=== PATIENT | male | born 1940 | race Caucasian/White ===

== ENCOUNTER 2016-10-01 21:44 | Observation (INO) | payer MEDICARE, OTHER ==
[~2016-10-01] VITALS: Ht 175.3 cm; Wt 92.7 kg
[~2016-10-01 21:44] MED LIST: AMOX1TAB15 PO; BENZ200C36 PO; CALC-727 PO; CODE118S2 PO; HYDR-3989 PO; IBUP200C62 PO; MULT-669 PO; OMEP20TA2 PO; SILD100T PO; TAMS0.4C47 PO; TEST200V21 IM; TRIA1TAB3 PO
--- OUTSIDE RECORDS SUMMARY | 2016-10-01 21:48 | XMS REPORT | Continuity of Care Document ---
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, 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 - Improved Mechanical ptosis - Improved Family History Family Member Diagnosis Age At Onset Status Unknown Social History Social History Element Description Quantity Unknown Allergies, Adverse Reactions, Alerts Substance Reaction Severity Status Unknown Medications Medication Instructions Dosage Effective Dates (start - stop) Status FLOMAX (unknown strength) - Active Testosterone (unknown strength) - Active VIAGRA (unknown strength) - Active LIDODERM (unknown strength) - Active ASPIR 81 (unknown strength) - Active Fish Oil (unknown strength) - Active Immunizations Vaccine Date Status Comments Unknown Results Test Name Date and Time Measure Units Reference Range Abnormal Flag Comments Unknown Vital Signs Date / Time: Height Weight Pulse Rate Blood Pressure Temperature Unknown Procedures Procedure Date Unknown Encounters Encounter Location Date Patient Visit [facility] Ophthamology Patient Visit [facility] Ophthamology Patient Visit [facility] Ophthamology Patient Visit [facility] Ophthamology Advance Directives Directive Effective Date Unknown
--- OUTSIDE RECORDS SUMMARY | 2016-10-01 21:48 | XMS REPORT | Referral Summary ---
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 Phone Karon Diallo Primary Care Physician [phone] Encounter VC Date(s): 03/22/15 - 03/23/15 [facility] [address] [place] [address] Final: UNSPECIFIED CHEST PAIN Final: UNSPECIFIED ESSENTIAL HYPERTENSION Final: CONSTIPATION, UNSPECIFIED Final: Personal History of Other Malignant Lymphatic and Hematopoietic Neoplasms Final: Long-Term (Current) Use of Other Medications Discharge Diagnosis: Acute chest pain Discharge Disposition: -Home or Self Care Attending Physician: Karon Diallo MD Admitting Physician: Karon Diallo MD Vital Signs Most recent to 1 oldest [Reference Range]: Temperature Oral 36.4 degC [35.8-37.3 degC] (03/23/15 7:00 AM) Peripheral Pulse 73 bpm Rate [60-100 bpm] (03/23/15 7:00 AM) Heart Rate Monitored 73 bpm [60-100 bpm] (03/22/15 9:20 AM) Respiratory Rate 18 br/min [14-20 br/min] (03/23/15 7:00 AM) Blood Pressure 115/69 mmHg [90-140/60-90 mmHg] (03/23/15 7:00 AM) Mean Arterial 96 mmHg Pressure, Cuff (03/22/15 9:20 AM) SpO2 95 % (03/23/15 7:00 AM) Problem List Condition Effective Dates Status Health Status Informant 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 ) Excess skin of Active eyelid (finding)(Confirmed) 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 ) Tissue perfusion Active alteration(Confirmed )2 Hernia, Active umbilical(Confirmed) 1Problem added automatically by system based on initiation of Cardiac Output/ Ineffective Cardiac Perfusion Plan of Care 2Problem added automatically by system based on initiation of Tissue Perfusion Cerebral Plan of Care Allergies, Adverse Reactions, Alerts No Known Allergies Medications Advil PM 2 tabs, Oral, Bedtime (once a day), 0 Refill(s) Start Date: 03/22/15 Status: Ordered Heather 180 mg, Oral, Daily, 0 Refill(s) Start Date: 03/22/15 Status: Ordered Chondroitin-Glucosamine oral tablet Oral, BID, 0 Refill(s) Start Date: 03/22/15 Status: Ordered Flomax 0.4 mg, Oral, BID, 0 Refill(s) Start Date: 05/06/14 Status: Ordered multivitamin 1 tabs, Oral, Daily, 0 Refill(s) Start Date: 05/06/14 Status: Ordered Nasacort AQ 2 sprays, Nasal, Daily, 0 Refill(s) Start Date: 03/22/15 Status: Ordered OTC [place] Supplement OTC [place] Supplement, 1 tabs, Oral, Bedtime (once a day), 0 Refill(s) Start Date: 03/22/15 Status: Ordered OTC Calcium OTC Calcium, 1 tabs, Oral, Daily, 0 Refill(s) Start Date: 03/22/15 Status: Ordered OTC Calcium + D OTC Calcium + D, 1 tabs, Oral, Bedtime (once a day), 0 Refill(s) Start Date: 03/22/15 Status: Ordered OTC Mucus Thinner OTC Mucus Thinner, 2 tabs, Oral, BID, 0 Refill(s) Start Date: 03/22/15 Status: Ordered OTC Stool Softener OTC Stool Softener, 4 caps, Oral, Bedtime (once a day), 0 Refill(s) Start Date: 03/22/15 Status: Ordered promethazine-codeine 6.25 mg-10 mg/5 mL oral syrup 5 mL, Oral, q6hr, as needed for cough, 0 Refill(s) Start Date: 03/22/15 Status: Ordered selenium Oral, Daily, 0 Refill(s) Start Date: 03/22/15 Status: Ordered testosterone cypionate 200 mg/mL intramuscular solution 400 mg 2 mL, IntraMuscular, q2wk, 0 Refill(s) Start Date: 03/22/15 Status: Ordered triamterene-hydrochlorothiazide 37.5 mg-25 mg oral tablet 1 tabs, Oral, Daily, 0 Refill(s) Start Date: 03/22/15 Status: Ordered Viagra 100 mg, Oral, Daily, as needed prior to sexual activity, 0 Refill(s) Start Date: 03/22/15 Status: Ordered Vitamin B-50 1 tabs, Oral, Daily, 0 Refill(s) Start Date: 03/22/15 Status: Ordered Vitamin C 1,000 mg, Oral, BID, 0 Refill(s) Start Date: 03/22/15 Status: Ordered Zantac Oral, BID, 0 Refill(s) Start Date: 03/22/15 Status: Ordered Results Hematology Most recent to 1 oldest [Reference Range]: WBC [4.8-10.8 5.2 10*3/uL 10*3/uL] (03/22/15 7:57 AM) RBC [4.60-6.20] 4.41 *LOW* (03/22/15 7:57 AM) Hgb [14.0-18.0 14.2 gm/dL gm/dL] (03/22/15 7:57 AM) Hct [42.0-52.0 %] 39.9 % *LOW* (03/22/15 7:57 AM) MCV [82.0-99.0 fL] 90.5 fL (03/22/15 7:57 AM) MCH [27.0-32.0 pg] 32.2 pg *HI* (03/22/15 7:57 AM) MCHC [32.0-36.0 35.6 gm/dL gm/dL] (03/22/15 7:57 AM) RDW [11.5-14.5 %] 12.2 % (03/22/15 7:57 AM) Platelet [150-400 240 10*3/uL 10*3/uL] (03/22/15 7:57 AM) MPV [9.4-12.3 fL] 8.5 fL *LOW* (03/22/15 7:57 AM) Immature 0.6 % Granulocytes (03/22/15 7:57 AM) [0.0-1.0 %] Neutrophils [51-75 54 % %] (03/22/15 7:57 AM) Lymphocytes [20-46 24 % %] (03/22/15 7:57 AM) Monocytes [4-11 %] 14 % *HI* (03/22/15 7:57 AM) Eosinophils [0-4 %] 7 % *HI* (03/22/15 7:57 AM) Basophils [0-2 %] 1 % (03/22/15 7:57 AM) Neutro Absolute 2.81 10*3 [1.90-7.00 10*3] (03/22/15 7:57 AM) Lymph Absolute 1.22 10*3 [0.80-3.30 10*3] (03/22/15 7:57 AM) Giles Absolute 0.73 10*3 [0.30-1.00 10*3] (03/22/15 7:57 AM) Eos Absolute 0.34 10*3 [0.00-0.50 10*3] (03/22/15 7:57 AM) Baso Absolute 0.06 10*3 [0.00-0.20 10*3] (03/22/15 7:57 AM) Nucleated RBC 0.0 /100 WBC Automated [0 /100 (03/22/15:57 AM) WBC] Chemistry Most recent to 1 oldest [Reference Range]: Sodium Lvl [136-144 126 mEq/L mEq/L] *LOW* (03/23/15 7:37 AM) Potassium Lvl 4.3 mEq/L [3.6-5.1 mEq/L] (03/23/15 7:37 AM) Chloride [99-109 96 mEq/L mEq/L] *LOW* (03/23/15 7:37 AM) CO2 [22-32 mEq/L] 24 mEq/L (03/23/15 7:37 AM) AGAP [3-20] 6 (03/23/15 7:37 AM) BUN [4-20 mg/dL] 18 mg/dL (03/23/15 7:37 AM) Glucose Lvl [70-100 98 mg/dL mg/dL] (03/23/15 7:37 AM) Creatinine Lvl 0.97 mg/dL [0.64-1.27 mg/dL] (03/23/15 7:37 AM) eGFR [>60] >60 1 (03/23/15 7:37 AM) Calcium Lvl 8.5 mg/dL [8.6-10.0 mg/dL] *LOW* (03/23/15 7:37 AM) Albumin Lvl [3.5-4.8 3.3 gm/dL gm/dL] *LOW* (03/23/15 7:37 AM) Total Protein 5.9 gm/dL [6.1-7.9 gm/dL] *LOW* (03/23/15 7:37 AM) Globulin [1.9-4.3 2.6 gm/dL gm/dL] (03/23/15 7:37 AM) ALT [17-63 U/L] 31 U/L (03/23/15 7:37 AM) AST [15-41 U/L] 25 U/L (03/23/15 7:37 AM) Alk Phos [26-104 56 U/L U/L] (03/23/15 7:37 AM) Bili Total [0.2-1.2 0.6 mg/dL 2 mg/dL] (03/23/15 7:37 AM) Troponin [<0.06 <0.05 ng/mL ng/mL] (03/22/15 8:25 PM) 1Result Comment: Multiply eGFR results by 1.21 for race. 2Result Comment: Naproxen, specifically the metabolite O-desmethylnaproxen, may cause spurious elevation in Total Bilirubin levels. Immunizations No data available for this section Procedures No data available for this section Social History Social History Type Response Smoking Status Never smoker Assessment and Plan No data available for this section
--- OUTSIDE RECORDS SUMMARY | 2016-10-01 21:48 | XMS REPORT | Referral Summary ---
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 Phone Karon Diallo Primary Care Physician [phone] Encounter VC Date(s): 03/22/15 - 03/23/15 [facility] [address] [place] [address] Discharge Diagnosis: Acute chest pain Discharge Disposition: [...] Refill(s) Start Date: 03/22/15 Status: Ordered OTC Kathleen Supplement OTC Kathleen Supplement, 1 tabs, Oral, Bedtime (once a [...] 1.22 10*3 [0.80-3.30 10*3] (03/22/15 7:57 AM) Benson Absolute 0.73 10*3 [0.30-1.00 10*3] (03/22/15 7:57 AM) Eos Absolute 0.34 10*3 [0.00-0.50 10*3] (03/22/15 7:57 AM) Baso Absolute 0.06 10*3 [0.00-0.20 10*3] (03/22/15 7:57 AM) Nucleated RBC 0.0 /100 WBC Automated [0 /100 (03/22/15 7:57 AM) WBC] Chemistry Most recent to 1 [...]
--- OUTSIDE RECORDS SUMMARY | 2016-10-01 21:48 | XMS REPORT | Continuity of Care Document ---
Author Author [facility] Organization [facility] Address Unknown Phone Unavailable Allergies Active Description Code Type Severity Reaction Onset Reported/Identified Relationship to Patient Clinical Status Yes No Known Allergies NKMA N/A N/A 05/06/2014 Yes No Known Allergies No Known Allergies Drug Allergy Unknown N/A 06/14/2016 Medications Problems Date Dx Coded Attending Type Code Diagnosis Diagnosed By 03/22/2015 Imani UMAÑA, Peg Admitting 786.50 03/24/2015 Imani UMAÑA, Peg Final 401.9 UNSPECIFIED ESSENTIAL HYPERTENSION 03/24/2015 Imani UMAÑA, Peg Final 564.00 CONSTIPATION, UNSPECIFIED 03/24/2015 Imani UMAÑA, Peg Reason 786.50 UNSPECIFIED CHEST PAIN 03/24/2015 Imani UMAÑA, Peg Final V10.79 Personal History of Other Malignant Lymphatic and Hematopoietic Neoplasms 03/24/2015 Imani UMAÑA, Peg Final V58.69 Long-Term (Current) Use of Other Medications 10/04/2015 Yovanny Parra MD P Final I10 Essential (primary) hypertension 10/04/2015 Yovanny Parra MD P 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 10/04/2015 Yovanny Parra MD P Final R20.0 Anesthesia of skin 10/04/2015 Yovanny Parra MD P Reason R20.8 Other disturbances of skin sensation 10/04/2015 Yovanny Parra MD P Final Z87.891 Personal history of nicotine dependence 05/28/2016 Leon Brennen Reason Z47.89 Encounter for other orthopedic aftercare 06/08/2016 Charanjit Lam MD A C61 MALIGNANT NEOPLASM OF PROSTATE 06/08/2016 Charanjit Lam MD A C61 MALIGNANT NEOPLASM OF PROSTATE 06/14/2016 Charanjit Lam MD A C61 MALIGNANT NEOPLASM OF PROSTATE 06/14/2016 Charanjit Lam MD A C61 MALIGNANT NEOPLASM OF PROSTATE Procedures Results Test Result Range CREATININE BEDSIDE - 06/14/16 10:45 METHOD Bedside CREATININE 1.0 mg/dL 0.7-1.3 Encounters ACCT No. Visit Date/Time Discharge Status Pt. Type Provider Facility Loc./Unit Complaint [id number] 09/18/2013 13:22:00 09/18/2013 23 :59:59 CLS Outpatient
--- OUTSIDE RECORDS SUMMARY | 2016-10-01 21:48 | XMS REPORT | Referral Summary ---
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 Phone Karon Diallo Primary Care Physician [phone] Encounter VC ARMIDA [id number] Date(s): 10/03/15 - 10/03/15 [facility] [address] [place] [address] Discharge Disposition: 01-Home or Self Care Attending Physician: Yovanny Parra MD Admitting Physician: Yovanny Parra MD Vital Signs No data available for this section Problem List Condition Effective Dates Status Health [...] Refill(s) Start Date: 03/22/15 Status: Ordered OTC [place] Supplement OTC [place] Supplement, 1 tabs, Oral, Bedtime (once a [...] Refill(s) Start Date: 03/22/15 Status: Ordered Results No data available for this section Immunizations No data available for this section Procedures No data available for this section Social History Social History Type Response Smoking Status Never smoker Assessment and Plan No data available for this section
--- NOTE | 2016-10-01 21:58 | NUR ---
DR WU IN ROOM
[2016-10-01] MEDS ORDERED: NORMAL SALINE 1,000 ML IV ONE (22:15)
[2016-10-01] MEDS ORDERED: RANITIDINE 150 MG TABLET PO ONE (22:15)
[2016-10-01] MEDS ORDERED: ASPIRIN *EC* 81mg TABLET PO ONE (22:15)
[2016-10-01] MEDS ORDERED: HYDROMORPHONE 2mg/ml INJECTION IV ONE (22:15)
[2016-10-01] MEDS ORDERED: METOCLOPRAMIDE 10mg/2ml INJECTION IV ONE (22:15)
--- OUTSIDE RECORDS SUMMARY | 2016-10-01 22:16 | XMS REPORT | Continuity of Care Document ---
Author Author [facility] Organization [facility] Address Unknown Phone Unavailable Allergies Active Description [...] Status Pt. Type Provider Facility Loc./Unit Complaint [id number] 09/18/2013 13:22:00 09/18/2013 23 :59:59 CLS Outpatient
--- NOTE | 2016-10-01 22:19 | ERPDOC ---
Departure Disposition Decision Date: Oct 02, 2016 Disposition Decision Time: 00:51 Disposition: 02 TO [facility] Impression Impression Impression: Primary Impression: Substernal chest pain Severity: Severe Condition: Improved Seen By: Physician only Referrals: COLTON CUEVAS MD (Family) Problems/Meds/Labs Reviewed?: Yes Medications reviewed and manag: Yes Follow up care ordered?: Yes Mental Status: Alert HPI - Chest Pain General Chief Complaint: Cardiac Complaint Stated Complaint: CHEST PAIN Time Seen by Provider: 21:45 Source: patient, family Exam Limitations: no limitations HPI - Chest Pain Initial Comments Approximately 2 hours ago, after a Bible study, the patient having substernal chest pain with radiation into the back and up into the posterior segment of the neck. Pain is significantly worse when trying to take a deep breath, twisting or turning. Patient has had pain like this a few years ago, had an ER evaluation in [place], but does not remember what they diagnosed him with. Patient has never had any heart problems, urinary artery disease, MS, or heart surgery. Patient does have mild hypertension, but has no other cardiac risk factors other than his age of 76. Patient is a nonsmoker, nondiabetic, but does have a history of lymphoma in the past. Patient was brought in by EMS, and they were unable to do a 12-lead EKG in route. Patient took TUMS at home without relief Occurred At: home Onset/Timing: Rapid Duration: 1-3 hrs Activities at Onset/Context: rest Location: substernal Quality: aching, cramping, squeezing Chest Pain Radiation: neck, back Nitro Today/Relief: no nitro taken today Aspirin Treatment Today: 81 mg x 4, provided by ED Prior Chest Pain/Cardiac Anna: non-cardiac Hx of Similar Symptoms: Yes Allergies: Coded Allergies: No Known Allergies (Unverified , 05/20/15) Viagra/ED med in past 36 hrs: No Past History Patient Surgical History lymphoma--exploratory laparotomy of the abdomen appendectomy back surgery eyelid surgery Past Medical History Metabolic: cancer, hypertension Surgical History General: appendix Social History Smoking Status: Never smoker Does patient use chewing tobac: No Second Hand Exposure: No Substance Use Type: does not use Alcohol Intake: 0-2 drinks per day (wine, each evening) Sexuality: female partner Review of Systems Constitutional Constitutional: DENIES: appetite decrease, appetite increase, chills, dizziness , fever, weakness ENMT Ears: DENIES: pain Hearing: DENIES: hearing loss, tinnitus Balance: DENIES: vertigo Mouth/Throat: DENIES: change in swallowing, change in voice, hoarsness, painful swallowing, sore throat Cardiovascular Cardiac: chest pain, DENIES: dyspnea on exertion Rhythm/Rate: DENIES: irregular beat, palpitations, tachycardia Vascular: DENIES: pedal edema Pulmonary Respiratory: DENIES: cough, dyspnea, pleuritic chest pain GI Upper Abdomen: DENIES: dysphagia, heartburn/indigestion, nausea, pain, vomiting Lower Abdomen: DENIES: blood in stool, constipation, diarrhea, pain General: DENIES: burning, dysuria, frequency, pain, urgency Musculoskeletal General: DENIES: cramps, joint pain, joint swelling, pain, weakness Integumentary Skin: DENIES: rash, sores Neurological General: DENIES: headache, numbness, tingling, vertigo, weakness Psychiatric Psychiatric: DENIES: anxiety, depression, nervousness Physical Exam General General Nourishment: well nourished, well developed, appears stated age General Body Habitus: well groomed Vitals and Pain First Documented Vital Signs Date Time Temp Pulse Resp B/P Pulse Ox O2 Delivery O2 Flow Rate FiO2 10/01/16 21:44 98.2 98 20 186/97 99 Room Air 10/01/16 21:44 2.00 Weight: Kilograms: Height (feet): 5 Height (inches): 9 Triage Pain Scale: RN VS reviewed by Provider: Yes Normal Exams: Head: Normocephalic w/o trauma Eyes: Pupils are PERRLA w/ EOMI, No scleral icterus, irritation, or foreign bodies noted ENMT: No facial trauma, nasal exudates, pharyngeal erythema, or exudates are noted Neck: Full range of motion, without adenopathy, JVD, bruits or thyromegaly Chest/Resp: Clear all wells, with good airflow, and symmetry bilaterally Lymphatic: No lymphadenopathy, or lymphedema noted Musculoskeletal: No tenderness, or deformity noted, good range of motion, all extremities Integumentary: No rashes, hives, or bruising noted, hair and nails, without abnormality Neurologic: Patient is alert, and oriented, cranial nerves, motor/sensory/ cerebellar, exams w/o gross deficits, to observation Psychiatric: Patient exhibits, appropriate attention, emotion and affect Respiratory (brief) Respiratory: FOUND: clear all wells, equal bilaterally, symmetrical, NOT FOUND : rales, tenderness, wheezes Cardiovascular (brief) Cardiac: FOUND: regular rate, regular rhythm, NOT FOUND: click, gallop, murmur , pedal edema Capillary Refill: <2 sec Pulses: all distal extremities, equal, strong Abdomen (brief) Abdominal Brief: FOUND: bowel normo active x4, soft, tender (moderate epigastric tenderness, reproduces some of the patient's chest discomfort with palpation), NOT FOUND: distended, hepatosplenomegaly, pulsatile mass Progress Results/Orders Orders Procedure Category Date Status Time Cbc W/Auto LAB 10/01/16 Complete Diff-Reflex Manual 22:03 Cmp - Comprehensive LAB 10/01/16 Complete Metabolic 22:03 Troponin I W LAB 10/01/16 Complete Hemolysis Index 22:03 EKG EKG 10/01/16 Taken 22:03 Chest 1 View RAD 10/01/16 Taken 22:03 Iv Lock (Ed Only) EDM 10/01/16 Transmitted 22:03 Hydromorphone PHA 10/01/16 Complete (Dilaudid) 22:15 Aspirin *Ec* (Ecotrin) PHA 10/01/16 Complete 22:15 Normal Saline (Normal PHA 10/01/16 Complete Saline Iv) 22:15 Metoclopramide PHA 10/01/16 Complete (Reglan Inj) 22:15 Ranitidine (Zantac) PHA 10/01/16 Complete 22:15 Lipase LAB 10/01/16 Complete Nitroglycerin PHA 10/01/16 In Process (Nitrostat) 23:45 Nitroglycerin PHA 10/02/16 Complete Ointment (Nitro-Bid) 00:15 Lab Results Laboratory Tests Test 10/01/16 22:04 White Blood Count 9.1T/MM3 Red Blood Count 4.01M/MM3 Hemoglobin 12.7GM/DL Hematocrit 37.8% Mean Corpuscular Volume 94.3UM3 Mean Corpuscular Hemoglobin 31.7UUG Mean Corpuscular Hemoglobin Concent 33.6GM/DL RDW Standard Deviation 40.4FL Platelet Count 296T/MM3 Mean Platelet Volume 9.0UM3 Immature Granulocyte % (Auto) 0.2% Neutrophils (%) (Auto) 75.0% Lymphocytes (%) (Auto) 14.6% Monocytes (%) (Auto) 7.9% Eosinophils (%) (Auto) 2.1% Basophils (%) (Auto) 0.2% Absolute Immature Granulocyte (auto 0.02T/MM3 Absolute Neutrophils (auto) 6.9T/MM3 Absolute Lymphocytes (auto) 1.3T/MM3 Absolute Monocytes (auto) 0.7T/MM3 Absolute Eosinophils (auto) 0.2T/MM3 Absolute Basophils (auto) 0.0T/MM3 Turbidity < 20 Sodium Level 139MEQ/L Potassium Level 4.0MEQ/L Chloride Level 97MEQ/L Carbon Dioxide Level 29MEQ/L Anion Gap 13MEQ/L Blood Urea Nitrogen 22.0MG/DL Creatinine 0.9MG/DL Glomerular Filtration Rate Calc 82 BUN/Creatinine Ratio 24RATIO Glucose Level 95MG/DL Calculated Osmolality 271MOSM/KG Calcium Level 9.4MG/DL Total Bilirubin 0.40MG/DL Icterus Index < 2 Aspartate Amino Transf (AST/SGOT) 32U/L Alanine Aminotransferase (ALT/SGPT) 36U/L Alkaline Phosphatase 76U/L Troponin I < 0.012ng/ml Total Protein 7.0G/DL Albumin 4.1G/DL Globulin 2.9G/DL Albumin/Globulin Ratio 1.4RATIO Lipase 14U/L Chemistry Specimen Hemolysis < 15 Medications Current ED Medications Hydromorphone HCl (Dilaudid) 1 mg O ONCE IV Last administered on 10/01/16 22: 42; Start 10/01/16 at 22:15; Stop 10/01/16 at 22:16; Status DC Aspirin 324 mg 324 mg O ONCE PO ; Start 10/01/16 at 22:15; Stop 10/01/16 at 22: 16; Status DC Sodium Chloride (Normal Saline IV) 1,000 ml @ 0 mls/hr Q0M ONCE IV Last administered on 10/01/16 22:33; Start 10/01/16 at 22:15; Stop 10/01/16 at 22:16 ; Status DC Metoclopramide HCl (REGLAN Inj) 10 mg O ONCE IV Last administered on 22:34; Start 10/01/16 at 22:15; Stop 10/01/16 at 22:16; Status DC Ranitidine HCl (Zantac) 150 mg O ONCE PO Last administered on 10/01/16 22:36 ; Start 10/01/16 at 22:15; Stop 10/01/16 at 22:16; Status DC Nitroglycerin (Nitrostat) 0.4 mg Q5MIN PRN SL CHEST PAIN Last administered on 23:43; Start 10/01/16 at 23:45 Nitroglycerin (Nitro-Bid) 1 inch O ONCE TOP Last administered on 10/02/16 00: 14; Start 10/02/16 at 00:15; Stop 10/02/16 at 00:16; Status DC Progress Progress EKG shows a normal sinus rhythm without ischemia, ectopy, or infarction Patient given aspirin in the ER with Zantac 300 milligrams orally, Toradol, Reglan 10 mg IV, and 1 L normal saline IV fluid with 1 mg Dilaudid IV - no significant relief CBC - N CMP - N Lipase - N Troponin - N Chest x-ray - N Patient given nitroglycerin sublingual 3 with 1 inch of paste with incremental decrease in pain, and finally pain-free. Case discussed with Pb Donaldson - will admit medical, tele, observation to KUSH Latham MD Oct 01, 2016 22:19
[2016-10-01 22:35] LABS: BASOPHILS % (AUTO) 0.2 % (0-2); EOSINOPHILS # (AUTO) 0.2 T/MM3 (0-0.5); EOSINOPHILS % (AUTO) 2.1 % (0-4); HCT - HEMATOCRIT 37.8 % (41-53); HGB - HEMOGLOBIN 12.7 GM/DL (13.5-17.5); IMMATURE GRANULOCYTE # (AUTO) 0.02 T/MM3 (0.00-0.03); IMMATURE GRANULOCYTE % (AUTO) 0.2 % (0.0-0.5); LYMPHOCYTES # (AUTO) 1.3 T/MM3 (1-4.8); LYMPHOCYTES % (AUTO) 14.6 % (23-45); MEAN CORPUSCULAR HGB 31.7 UUG (26-34); MEAN CORPUSCULAR HGB CONC(MCHC 33.6 GM/DL (31-37); MEAN CORPUSCULAR VOLUME 94.3 UM3 (80-100); MONOCYTES # (AUTO) 0.7 T/MM3 (0-0.8); MONOCYTES % (AUTO) 7.9 % (0-9.0); NEUTROPHILS #(AUTO)-ABSOLUTE 6.9 T/MM3 (1.8-7.7); RED BLOOD COUNT 4.01 M/MM3 (4.50-5.90); WBC - WHITE BLOOD COUNT 9.1 T/MM3 (4.5-11.0)
[2016-10-01 22:46] LABS: ALBUMIN 4.1 G/DL (3.5-5.0); ALBUMIN/GLOBULIN RATIO 1.4 RATIO (1.1-2.2); ALKALINE PHOSPHATASE 76 U/L (38-126); ALT (SGPT) 36 U/L (21-72); ANION GAP 13 MEQ/L (5-15); AST (SGOT) 32 U/L (17-59); BUN/CREATININE RATIO 24 RATIO (6-26); CALCIUM 9.4 MG/DL (8.4-10.2); CHLORIDE 97 MEQ/L (98-107); CO2 - CARBON DIOXIDE 29 MEQ/L (22-30); CREATININE 0.9 MG/DL (0.8-1.5); GLOMERULAR FILTRATION RATE 82; GLUCOSE 95 MG/DL (75-110); SODIUM 139 MEQ/L (134-144)
[2016-10-01] MEDS ORDERED: OXYC10TA57 PO (23:08)
[2016-10-01] MEDS: NITROGLYCERIN 0.4 MG SUBLINGUAL TABLET SL PRN ×3 (23:33→23:43)
[2016-10-02] MEDS ORDERED: NITROGLYCERIN 2% OINTMENT 1 G PACKET TOP ONE (00:15)
[2016-10-02] MEDS ORDERED: MORPHINE SULFATE 2 MG SYRINGE IV PRN (01:00)
[2016-10-02] MEDS ORDERED: NITROGLYCERIN 0.4 MG SUBLINGUAL TABLET SL PRN (01:00)
--- NOTE | 2016-10-02 01:05 | NUR ---
ADMIT ROOM 145 ASSIGNED TO PT
--- OUTSIDE RECORDS SUMMARY | 2016-10-02 01:09 | XMS REPORT | Continuity of Care Document ---
Author Author [facility] Organization [facility] Address Unknown Phone Unavailable Allergies Active Description [...] Status Pt. Type Provider Facility Loc./Unit Complaint [id number] 09/18/2013 13:22:00 09/18/2013 23 :59:59 CLS Outpatient
--- NOTE | 2016-10-02 01:13 | NUR ---
REPORT GIVEN TO DARELL ALBRECHT
[2016-10-02 01:28] VITALS: Ht 175.3 cm; Wt 92.7 kg
[2016-10-02 01:39] VITALS: BP 134/71; PULSE 101; RESP 18; TEMP 99.6; O2SAT 96
[2016-10-02] MEDS ORDERED: ACETAMINOPHEN 325 MG TABLET PO PRN (02:00)
[2016-10-02] MEDS ORDERED: ONDANSETRON 4mg/2ml INJECTION IV PRN (02:00)
[2016-10-02] MEDS ORDERED: KETOROLAC 30mg/ml INJECTION IV ONE (02:00)
[2016-10-02] MEDS ORDERED: ENOXAPARIN 150 MG/ML INJECTION SQ ONE (02:00)
[2016-10-02] MEDS: TAMSULOSIN 0.4 MG CAPSULE PO SCH ×2 (02:09→08:48)
[2016-10-02] MEDS ORDERED: IBUPROFEN 200 MG TABLET PO PRN (03:45)
[2016-10-02] MEDS ORDERED: HYDROCODONE/APAP 5 mg/325 mg TABLET PO PRN (03:45)
--- NOTE | 2016-10-02 04:57 | HPPDOC ---
CECE MAC CLINICAL CARE COORDINATOR 10/02/16 0437: HPI - Adult Date DATE: 10/02/16 TIME: 04:17 General Date of Admission Date of Admission: Oct 02, 2016 at 00:49 PCP: Dr. Blanco Associate Media Director: Dr. Strickland, PhD. 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 He has fallen about every month due to his unsteady gait and foot drop from the neuropathy. In fact he fell 04/2016 and tore his rotator cuff and had surgery by Dr. Leon. His shoulder still is painful and had PT and an brake specialist work with him. He is scheduled for an MRI and revisit possible shoulder surgery in the near future. His legs are swollen L>R and his feet are cool and 1 1/[address] Parra who performed an ultra sound and informed him he has good circulation in his lower extremities. This evening after Bible study class he was walking down the stairs when he developed chest pain. He thought it was gas and after he drove home took 3 Tums for no relief. While at home the chest pain became worse radiating into his upper back and up the back of his neck giving him a bad headache. After 45 minutes he could not tolerate the pain and called EMS. In ER ECG: SR, possible LAE. no acute ischemia. . Initial trop was negative. CXR : heart size normal, lungs clear. all othre labs unremarkable. In ER he received. Zatac, Reglan and Dilaudid. for no relief. Then he was given Ntg sl and with each Ntg his chest pain lessened down to 0/10. Currently denies chest pain except with deep breaths. Dr. Vazquez was notified and admitted pt as OBS. Past Medical History Past Medical History Metabolic: cancer (prostarte cander and lymphoma. 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 ) PMH Comments In 1997 he had lymphoma treated with chemo 3 times which did not cure it. Then he received stem cell, radiation and finally monoclonal antibodies cured the lymphoma. All the chemo caused neuropathy in his lwer extremities. He states his feet are numb and makes it difficult to walk. He walks with a cane and falls frequently. Surgical History General: appendix, colonoscopy Cardiac: DENIES: cardiac cath Reproductive/: prostatectomy Joint: shoulder (left shoulder surgery 04/2016 ) Current Medications Home Meds Active Scripts Hydrocodone/Apap (Glouster 5-325 Tablet) 1 Each Tablet, 1-2 TAB PO Q6H Y for PRN ORDERS, #20 TAB 0 Refills Prov:JOVANNA ELIZABETH MD 05/20/15 Reported Medications Meloxicam (Meloxicam) 15 Mg Tablet, 15 MG PO DAILY, TAB 10/02/16 Mirabegron (Myrbetriq) 50 Mg Tab.er.24h, 50 MG PO DAILY, TAB 10/02/16 Oxycodone HCl (Oxycodone HCl) 20 Mg Tablet, 1 TAB PO HS 10/02/16 Oxycodone HCl (Oxycontin) 10 Mg Tab.er.12h, 10 MG PO DAILY, TAB 10/01/16 Multivitamin with Minerals (Multiple Vitamin) 1 Each Tablet, 1 TAB PO DAILY 05/20/15 Calcium Carbonate/Vitamin D3 (Calcium 600 + Vit D 200 Tablet) 1 Each Tablet, 1 TAB PO DAILY 05/20/15 Tamsulosin HCl (Tamsulosin HCl) 0.4 Mg Cap.er.24h, 1 TAB PO BID 05/20/15 Triamterene/Hydrochlorothiazid (Triamterene-Hctz 37.5-25 mg Tb) 1 Each Tablet, 1 TAB PO DAILY 05/20/15 Discontinued Reported Medications Ibuprofen (Ibuprofen) 200 Mg Capsule, 1 CAP PO Q6H Y, CAP 05/20/15 Sildenafil Citrate (Viagra) 100 Mg Tablet, 1 TAB PO PRN 05/20/15 Testosterone Cypionate (Testosterone Cypionate) 200 Mg/1 Ml Vial, 2 ML IM Q2WK 05/20/15 Omeprazole Magnesium (Prilosec Otc) 20 Mg Tablet.dr, 1 TAB PO BID, TAB 05/20/15 Benzonatate (Benzonatate) 200 Mg Capsule, 1 TAB PO TID Y for cough 05/20/15 Promethazine HCl/Codeine (Promethazine-Codeine Syrup) 118 Ml Syrup, 5 ML PO Q6H Y for cough 05/20/15 Discontinued Scripts Amoxicillin/Potassium Clav (Amox Tr-K Clv 500-125 mg Tab) 1 Each Tablet, 1 TAB PO TID, #21 TAB 0 Refills TAKE WITH MEALS Prov:JOVANNA ELIZABETH MD 05/20/15 Allergies: Coded Allergies: No Known Allergies (Unverified , 05/20/15) Family History FOUND: COPD, hypertension Family History Comments Father in his 80's. He smoked and had emphysema and HTN Mother in her 90's of old age. Vaccines NONE No Social History Smoking Status: Never smoker Does patient use chewing tobac: No Second Hand Exposure: No Substance Use Type: does not use Alcohol Intake: 0-2 drinks per day (1-2 glasses of wine, each evening and beer on the weekends. ) Marital Status: Sexuality: female partner Housing: house Household Members: spouse Current Occupational Status: employed Advance Directives: Yes DPOA for Healthcare Only ([employer]BY - ) Social History Comments He smoked cigars occasionally in the and Quit. Review of Systems Constitutional: REPORTS: fatigue, weakness, DENIES: chills, dizziness, fever, syncope, weight gain, weight loss Eyes Vision: DENIES: blurring ENMT Balance: falling to one side, other (unsteady due to neuropathy in legs. ) Mouth/Throat: DENIES: sore throat Cardiovascular chest pain, DENIES: dyspnea on exertion, orthopnea, paroxysmal nocturnal dysp Rhythm/Rate: DENIES: irregular beat, palpitations, tachycardia Vascular: pedal edema (legs are edematous +2 L>R wears support stockings most of the time. ) Pulmonary Respiratory: DENIES: cough, dyspnea, sputum GI Upper Abdomen: heartburn/indigestion, DENIES: nausea Lower Abdomen: DENIES: blood in stool General: nocturia, DENIES: hematuria Male: frequency, hesitancy, retention Musculoskeletal General: joint pain (left shoulder. ) Integumentary Skin: DENIES: lesion, rash Nails: DENIES: cupping, pitting Neurological General: headache, numbness (in feet priti. ), poor coordination, weakness (in legs priti. ), DENIES: blackouts, fainting, seizures, syncope, vertigo Psychiatric Psychiatric: depression, DENIES: memory impairment Endocrine heat/cold intolerance Hematologic/Lymphatic DENIES: easy bruising Physical Exam General General Nourishment: well nourished, well developed General Body Habitus: well groomed Vital Signs Vital Signs Date Time Temp Pulse Resp B/P Pulse Ox O2 Delivery O2 Flow Rate FiO2 10/02/16 01:39 99.6 101 18 134/71 96 Room Air 10/02/16 01:25 2.00 Height (Feet): 5 Height (Inches): 9.00 Eyes Brief: NOT FOUND: scleral icterus ENMT Brief: FOUND: hearing intact, mucosa moist, normal dentition Neck Brief: FOUND: midline, NOT FOUND: JVD, carotid bruits Respiratory Brief: FOUND: clear all wells, equal bilaterally Cardiovascular (brief) Cardiac Brief: FOUND: pedal edema, regular rate, regular rhythm, NOT FOUND: murmur Capillary Refill: <2 sec, other (DP pulses +2 priti. ) Abdomen (brief) Abdominal Brief: FOUND: BS normo active x4, soft, NOT FOUND: tender Integumentary (brief) Integumentary Brief: FOUND: dry, pink, warm Neurologic (brief) Neurological Brief: NOT FOUND: facial droop, motor (unsteady gait due to neuroapthy. ), ptosis, sensory Neurologic RN Documented GCS Eye Opening: Verbal: Motor: Total: Psychiatric (brief) FOUND: alert, attentive, normal affect, oriented Laboratory Laboratory Tests Test 10/01/16 22:04 White Blood Count 9.1T/MM3 Red Blood Count 4.01M/MM3 Hemoglobin 12.7GM/DL Hematocrit 37.8% Mean Corpuscular Volume 94.3UM3 Mean Corpuscular Hemoglobin 31.7UUG Mean Corpuscular Hemoglobin Concent 33.6GM/DL RDW Standard Deviation 40.4FL Platelet Count 296T/MM3 Mean Platelet Volume 9.0UM3 Immature Granulocyte % (Auto) 0.2% Neutrophils (%) (Auto) 75.0% Lymphocytes (%) (Auto) 14.6% Monocytes (%) (Auto) 7.9% Eosinophils (%) (Auto) 2.1% Basophils (%) (Auto) 0.2% Absolute Immature Granulocyte (auto 0.02T/MM3 Absolute Neutrophils (auto) 6.9T/MM3 Absolute Lymphocytes (auto) 1.3T/MM3 Absolute Monocytes (auto) 0.7T/MM3 Absolute Eosinophils (auto) 0.2T/MM3 Absolute Basophils (auto) 0.0T/MM3 Turbidity < 20 Sodium Level 139MEQ/L Potassium Level 4.0MEQ/L Chloride Level 97MEQ/L Carbon Dioxide Level 29MEQ/L Anion Gap 13MEQ/L Blood Urea Nitrogen 22.0MG/DL Creatinine 0.9MG/DL Glomerular Filtration Rate Calc 82 BUN/Creatinine Ratio 24RATIO Glucose Level 95MG/DL Calculated Osmolality 271MOSM/KG Calcium Level 9.4MG/DL Total Bilirubin 0.40MG/DL Icterus Index < 2 Aspartate Amino Transf (AST/SGOT) 32U/L Alanine Aminotransferase (ALT/SGPT) 36U/L Alkaline Phosphatase 76U/L Troponin I < 0.012ng/ml Total Protein 7.0G/DL Albumin 4.1G/DL Globulin 2.9G/DL Albumin/Globulin Ratio 1.4RATIO Lipase 14U/L Chemistry Specimen Hemolysis < 15 EKG 10/01/2016 ECG: SR, HR 96, possible left atrial enlargement. no acute ST changes. Radiology 10/01/2016 CXR: heart size normal, lungs clear. Assessment & Plan Problems: (1) Substernal chest pain Status: Acute Assessment & Plan: Trop neg x1 so far. Ordered serial trop x3. ECG not ischemic. Repeat in am. Chest pain relieved with Ntg slx3. Possible GERD and / or musculoskeletal. Gave lovenox 1mg/kg x1. Nitro paste. Given his age, male gender and HTN, he does have risk factors for cardiac disease. Consider heart cath vs stress test as an out patient. Dr. Vazquez to determine when he sees him today. (2) Neuropathy associated with cancer Status: Chronic Assessment & Plan: Neuropathy in feet priti. Dorsal pedal pulses palpable. Saw Dr. Parra 1 1/2 yrs ago and told he has circulation in his legs. priit. He is unsteady on his feet. to bring his cane in the morning. (3) GERD (gastroesophageal reflux disease) Status: Chronic Assessment & Plan: Cont omeprazole. (4) Left shoulder pain Status: Chronic Assessment & Plan: Toradol given and heating pad. Usually takes oxycodone and Glouster and meloxicam. Last dose of meloxicam was 1 week ago. States the left shoulder pain is tolerable and does not hurt any worse than usual. Scheduled for f/u with Dr. Leon already. Cont Glouster prn. Oxycodone to be verified in am. Pain ok now (5) HTN (hypertension) Qualifiers: Hypertension type: essential hypertension Qualified Codes: I10 - Essential (primary) hypertension Assessment & Plan: Better controlled now. Cont home med: triamterene/HCTZ and monitor. . (6) Urinary retention Status: Chronic Assessment & Plan: cont Flomax. He states he takes Myrbetriq. Meds to be verified when brings them in am. DVT Prophylaxis: Lovenox GI Prophylaxis: Other Code Status Full Code Hospital Course Summary Disclaimer The hospital course summary below is not to be considered part of the above Progress Note. LEV PAPPAS Demetrice CLINICAL CARE COORDINATOR 10/02/16 1430: Past Medical History Current Medications Home Meds Active Scripts Hydrocodone/Apap (Glouster 5-325 Tablet) 1 Each Tablet, 1-2 TAB PO Q6H Y for PRN ORDERS, #20 TAB 0 Refills Prov:JOVANNA ELIZABETH MD 05/20/15 Reported Medications Meloxicam (Meloxicam) 15 Mg Tablet, 15 MG PO DAILY, TAB 10/02/16 Mirabegron (Myrbetriq) 50 Mg Tab.er.24h, 50 MG PO DAILY, TAB 10/02/16 Oxycodone HCl (Oxycodone HCl) 20 Mg Tablet, 1 TAB PO HS 10/02/16 Oxycodone HCl (Oxycontin) 10 Mg Tab.er.12h, 10 MG PO DAILY, TAB 10/01/16 Multivitamin with Minerals (Multiple Vitamin) 1 Each Tablet, 1 TAB PO DAILY 05/20/15 Calcium Carbonate/Vitamin D3 (Calcium 600 + Vit D 200 Tablet) 1 Each Tablet, 1 TAB PO DAILY 05/20/15 Tamsulosin HCl (Tamsulosin HCl) 0.4 Mg Cap.er.24h, 1 TAB PO BID 05/20/15 Triamterene/Hydrochlorothiazid (Triamterene-Hctz 37.5-25 mg Tb) 1 Each Tablet, 1 TAB PO DAILY 05/20/15 Discontinued Reported Medications Ibuprofen (Ibuprofen) 200 Mg Capsule, 1 CAP PO Q6H Y, CAP 05/20/15 Sildenafil Citrate (Viagra) 100 Mg Tablet, 1 TAB PO PRN 05/20/15 Testosterone Cypionate (Testosterone Cypionate) 200 Mg/1 Ml Vial, 2 ML IM Q2WK 11/27/15 Omeprazole Magnesium (Prilosec Otc) 20 Mg Tablet.dr, 1 TAB PO BID, TAB 05/20/15 Benzonatate (Benzonatate) 200 Mg Capsule, 1 TAB PO TID Y for cough 05/20/15 Promethazine HCl/Codeine (Promethazine-Codeine Syrup) 118 Ml Syrup, 5 ML PO Q6H Y for cough 05/20/15 Discontinued Scripts Amoxicillin/Potassium Clav (Amox Tr-K Clv 500-125 mg Tab) 1 Each Tablet, 1 TAB PO TID, #21 TAB 0 Refills TAKE WITH MEALS Prov:JOVANNA ELIZABETH MD 05/20/15 Allergies: Coded Allergies: No Known Allergies (Unverified , 05/20/15) Physical Exam Neck Brief: FOUND: carotid bruits (right) Cardiovascular (brief) Cardiac Brief: FOUND: murmur (systolic and diastolic murmurs) Radiology DATE OF EXAM: 10/02/16 ORDERING DOCTOR: LEV PAPPAS APRN TYPE OF EXAM: CT CHEST W/O CONTRAST REASON FOR EXAM: chest pain Indication: ITS.REASON: chest pain PROCEDURE: CT CHEST W/O CONTRAST: Encounter: Initial Comparison: Chest x-ray from yesterday Technique: Axial CT images were performed through the chest without intravenous contrast. Coronal and sagittal two-dimensional reformats. Automated Exposure Control and Iterative Reconstruction dose reducing techniques were utilized. Findings: No pneumothorax. Mild dependent atelectasis in both lower lobes. No consolidative pneumonia or pleural effusion. No worrisome pulmonary nodule or mass. The central airways are patent. Small subcentimeter low-attenuation bilateral thyroid nodules. No axillary or mediastinal adenopathy. Heart size is normal. No pericardial effusion. Ectasia of the ascending thoracic aorta at 4.1 cm in diameter. Descending thoracic aorta is normal in caliber. Mild atherosclerotic plaque in the aortic arch. The upper abdomen shows a distended gallbladder with small gallstones. Fatty replaced pancreas. Impression: 1. No acute disease process seen in the chest. 2. Ascending aortic ectasia DATE OF EXAM: 10/02/16 ORDERING DOCTOR: LEV PAPPAS APRN TYPE OF EXAM: US CAROTID DOPP COMPLETE REASON FOR EXAM: right bruit Indication: ITS.REASON: right bruit PROCEDURE: US CAROTID DOPP COMPLETE: TECHNIQUE: Grayscale, color and duplex Doppler imaging was performed of the carotid systems bilaterally. Velocities in cm/sec - validated velocity measurements with angiographic measurements, velocity criteria are extrapolated from diameter data as defined by the Society of Radiologists in Ultrasound Consensus Conference Radiology 2003; 229;340-346. RIGHT: PSV ICA 105 EDV ICA 24 PSV CCA 110 EDV CCA 14 SVR 1.0 PSV ECA 141 ICA Diameter reduction <20% (0.8-1.0)% LEFT: PSV ICA 71 EDV ICA 17 PSV CCA 112 EDV CCA 19 SVR 0.80 PSV ECA 113 ICA Diameter reduction 0% (<0.8)% The right vertebral artery is patent with cephalic flow. The left vertebral artery is patent with cephalic flow. Calcified plaque in the right carotid bulb and proximal ICA without velocity elevation. Mild plaque also seen in the left carotid bulb with moderate noncalcified plaque in the proximal ICA. No velocity elevation. IMPRESSION: No hemodynamically significant carotid stenosis. Assessment & Plan Plan/Intensity of Service Obtain CT chest due to calcifications seen of Aorta on echo to rule out ectasia. Carotid doppler for right bruit today please. CECE MAC APRN Oct 02, 2016 04:37 LEV PAPPAS APRN Oct 02, 2016 14:30
[2016-10-02] MEDS: OMEPRAZOLE 20 MG CAPSULE PO SCH ×2 (06:05→17:20)
[2016-10-02 07:44] VITALS: BP 110/68; PULSE 84; RESP 16; TEMP 98.2; O2SAT 97
[2016-10-02 07:49] VITALS: PULSE 84; RESP 16
--- NOTE | 2016-10-02 07:58 | DI ---
Indication: ITS.REASON: CENTRAL CHEST PAIN RADIATING INTO BACK PROCEDURE: CHEST 1 VIEW: Encounter: Initial Comparison: None Findings: Lungs are clear. No pleural effusion or pneumothorax. Cardiac silhouette is normal in size. There is a bulging of the right mediastinal border in the hilar and suprahilar area. Pulmonary vascularity appears normal. Skeletal structures appear normal for age. Impression: 1. No pneumonia or congestive failure. 2. Bulging of the right mediastinal contour could represent aortic ectasia or possibly aneurysm. Further evaluation with CT angiography of the chest could be performed as clinically indicated. .
[2016-10-02] MEDS ORDERED: OXYC20TA44 PO (08:42)
[2016-10-02] MEDS ORDERED: MELO-267 PO (08:46)
[2016-10-02] MEDS ORDERED: MIRA50TA PO (08:46)
[2016-10-02] MEDS ORDERED: TRIAMTERENE/HCTZ 37.5mg/25mg TABLET PO SCH (09:00)
[2016-10-02] MEDS ORDERED: MULTIVIT + MINERALS (OPTI-GEN) PO SCH (09:00)
--- NOTE | 2016-10-02 10:09 | NUR ---
CM CM IN TO VISIT PATIENT, HE IS A&O. IS AT THE BEDSIDE. PATIENT PLANS TO DISCHARGE HOME, DENIES ANY NEEDS AT THIS TIME. CM CONTACT INFORMATION GIVEN. Addendum: 10/02/16 at 1010 by OBI YBARRA RN Amended: Links added.
[2016-10-02 15:38] VITALS: BP 152/79; PULSE 94; RESP 18; O2SAT 95
--- NOTE | 2016-10-02 15:43 | NUR ---
PAIN PT REPORTS CHEST PAIN, PRN NORCO GIVEN.
--- NOTE | 2016-10-02 15:45 | DI ---
Indication: ITS.REASON: chest pain PROCEDURE: CT CHEST W/O CONTRAST: Encounter: Initial Comparison: Chest x-ray from yesterday Technique: Axial CT images were performed through the chest without intravenous contrast. Coronal and sagittal two-dimensional reformats. Automated Exposure Control and Iterative Reconstruction dose reducing techniques were utilized. Findings: No pneumothorax. Mild dependent atelectasis in both lower lobes. No consolidative pneumonia or pleural effusion. No worrisome pulmonary nodule or mass. The central airways are patent. Small subcentimeter low-attenuation bilateral thyroid nodules. No axillary or mediastinal adenopathy. Heart size is normal. No pericardial effusion. Ectasia of the ascending thoracic aorta at 4.1 cm in diameter. Descending thoracic aorta is normal in caliber. Mild atherosclerotic plaque in the aortic arch. The upper abdomen shows a distended gallbladder with small gallstones. Fatty replaced pancreas. Impression: 1. No acute disease process seen in the chest. 2. Ascending aortic ectasia. .
--- NOTE | 2016-10-02 15:55 | DI ---
Indication: ITS.REASON: right bruit PROCEDURE: US CAROTID DOPP COMPLETE: TECHNIQUE: Grayscale, color and duplex Doppler imaging was performed of the carotid systems bilaterally. Velocities in cm/sec - validated velocity measurements with angiographic measurements, velocity criteria are extrapolated from diameter data as defined by the Society of Radiologists in Ultrasound Consensus Conference Radiology 2003; 229;340-346. RIGHT: PSV ICA 105 EDV ICA 24 PSV CCA 110 EDV CCA 14 SVR 1.0 PSV ECA 141 ICA Diameter reduction <20% (0.8-1.0)% LEFT: PSV ICA 71 EDV ICA 17 PSV CCA 112 EDV CCA 19 SVR 0.80 PSV ECA 113 ICA Diameter reduction 0% (<0.8)% The right vertebral artery is patent with cephalic flow. The left vertebral artery is patent with cephalic flow. Calcified plaque in the right carotid bulb and proximal ICA without velocity elevation. Mild plaque also seen in the left carotid bulb with moderate noncalcified plaque in the proximal ICA. No velocity elevation. IMPRESSION: No hemodynamically significant carotid stenosis. .
[2016-10-02] MEDS ORDERED: ENOXAPARIN 40 MG/0.4 ML INJECTION SQ SCH (16:00)
[2016-10-02] MEDS ORDERED: ASPIRIN 81 MG CHEWABLE TABLET PO SCH (16:00)
--- NOTE | 2016-10-02 18:06 | DSPDOC ---
LEV PAPPAS [employer] 10/02/16 1805: General Date Date DATE: 10/02/16 TIME: 18:00 Attending Physician Gatito De Luna MD Admitting Physician Gatito De Luna MD Consulting Physician Admitting Diagnosis substernal chest pain Discharge Diagnosis precordial chest pain Laboratory Laboratory Tests Test 10/01/16 22:04 10/02/16 05:03 10/02/16 10:05 White Blood Count 9.1T/MM3 Red Blood Count 4.01M/MM3 Hemoglobin 12.7GM/DL Hematocrit 37.8% Mean Corpuscular Volume 94.3UM3 Mean Corpuscular Hemoglobin 31.7UUG Mean Corpuscular Hemoglobin Concent 33.6GM/DL RDW Standard Deviation 40.4FL Platelet Count 296T/MM3 Mean Platelet Volume 9.0UM3 Immature Granulocyte % (Auto) 0.2% Neutrophils (%) (Auto) 75.0% Lymphocytes (%) (Auto) 14.6% Monocytes (%) (Auto) 7.9% Eosinophils (%) (Auto) 2.1% Basophils (%) (Auto) 0.2% Absolute Immature Granulocyte (auto 0.02T/MM3 Absolute Neutrophils (auto) 6.9T/MM3 Absolute Lymphocytes (auto) 1.3T/MM3 Absolute Monocytes (auto) 0.7T/MM3 Absolute Eosinophils (auto) 0.2T/MM3 Absolute Basophils (auto) 0.0T/MM3 Turbidity < 20 Sodium Level 139MEQ/L Potassium Level 4.0MEQ/L Chloride Level 97MEQ/L Carbon Dioxide Level 29MEQ/L Anion Gap 13MEQ/L Blood Urea Nitrogen 22.0MG/DL Creatinine 0.9MG/DL Glomerular Filtration Rate Calc 82 BUN/Creatinine Ratio 24RATIO Glucose Level 95MG/DL Calculated Osmolality 271MOSM/KG Calcium Level 9.4MG/DL Total Bilirubin 0.40MG/DL Icterus Index < 2 Aspartate Amino Transf (AST/SGOT) 32U/L Alanine Aminotransferase (ALT/SGPT) 36U/L Alkaline Phosphatase 76U/L Troponin I < 0.012ng/ml < 0.012ng/ml < 0.012ng/ml Total Protein 7.0G/DL Albumin 4.1G/DL Globulin 2.9G/DL Albumin/Globulin Ratio 1.4RATIO Lipase 14U/L Chemistry Specimen Hemolysis < 15 < 15 < 15 Laboratory Tests Test 10/01/16 22:04 10/02/16 05:03 10/02/16 10:05 White Blood Count 9.1T/MM3 (4.5-11.0) Red Blood Count 4.01M/MM3 (4.50-5.90) Hemoglobin 12.7GM/DL (13.5-17.5) Hematocrit 37.8% (41-53) Mean Corpuscular Volume 94.3UM3 (80-100) Mean Corpuscular Hemoglobin 31.7UUG (26-34) Mean Corpuscular Hemoglobin Concent 33.6GM/DL (31-37) RDW Standard Deviation 40.4FL (36.9-50.2) Platelet Count 296T/MM3 (130-400) Mean Platelet Volume 9.0UM3 (9.4-12.4) Immature Granulocyte % (Auto) 0.2% (0.0-0.5) Neutrophils (%) (Auto) 75.0% (33-66) Lymphocytes (%) (Auto) 14.6% (23-45) Monocytes (%) (Auto) 7.9% (0-9.0) Eosinophils (%) (Auto) 2.1% (0-4) Basophils (%) (Auto) 0.2% (0-2) Absolute Immature Granulocyte (auto 0.02T/MM3 (0.00-0.03) Absolute Neutrophils (auto) 6.9T/MM3 (1.8-7.7) Absolute Lymphocytes (auto) 1.3T/MM3 (1-4.8) Absolute Monocytes (auto) 0.7T/MM3 (0-0.8) Absolute Eosinophils (auto) 0.2T/MM3 (0-0.5) Absolute Basophils (auto) 0.0T/MM3 (0-0.2) Turbidity < 20 (0-20) Sodium Level 139MEQ/L (134-144) Potassium Level 4.0MEQ/L (3.6-5) Chloride Level 97MEQ/L (98-107) Carbon Dioxide Level 29MEQ/L (22-30) Anion Gap 13MEQ/L (5-15) Blood Urea Nitrogen 22.0MG/DL (9-20) Creatinine 0.9MG/DL (0.8-1.5) Glomerular Filtration Rate Calc 82 BUN/Creatinine Ratio 24RATIO (6-26) Glucose Level 95MG/DL (75-110) Calculated Osmolality 271MOSM/KG (261-280) Calcium Level 9.4MG/DL (8.4-10.2) Total Bilirubin 0.40MG/DL (0.20-1.30) Icterus Index < 2 (0-7) Aspartate Amino Transf (AST/SGOT) 32U/L (17-59) Alanine Aminotransferase (ALT/SGPT) 36U/L (21-72) Alkaline Phosphatase 76U/L (38-126) Troponin I < 0.012ng/ml (0-0.12) < 0.012ng/ml (0-0.12) < 0.012ng/ml (0-0.12) Total Protein 7.0G/DL (6.3-8.2) Albumin 4.1G/DL (3.5-5.0) Globulin 2.9G/DL (2.4-3.6) Albumin/Globulin Ratio 1.4RATIO (1.1-2.2) Lipase 14U/L (23-300) Chemistry Specimen Hemolysis < 15 (0-25) < 15 (0-25) < 15 (0-25) Radiology TYPE OF EXAM: CT CHEST W/O CONTRAST REASON FOR EXAM: chest pain Indication: ITS.REASON: chest pain PROCEDURE: CT CHEST W/O CONTRAST: Encounter: Initial Comparison: Chest x-ray from yesterday Technique: Axial CT images were performed through the chest without intravenous contrast. Coronal and sagittal two-dimensional reformats. Automated Exposure Control and Iterative Reconstruction dose reducing techniques were utilized. Findings: No pneumothorax. Mild dependent atelectasis in both lower lobes. No consolidative pneumonia or pleural effusion. No worrisome pulmonary nodule or mass. The central airways are patent. Small subcentimeter low-attenuation bilateral thyroid nodules. No axillary or mediastinal adenopathy. Heart size is normal. No pericardial effusion. Ectasia of the ascending thoracic aorta at 4.1 cm in diameter. Descending thoracic aorta is normal in caliber. Mild atherosclerotic plaque in the aortic arch. The upper abdomen shows a distended gallbladder with small gallstones. Fatty replaced pancreas. Impression: 1. No acute disease process seen in the chest. 2. Ascending aortic ectasia DATE OF EXAM: 10/02/16 ORDERING DOCTOR: LEV PAPPAS APRN TYPE OF EXAM: US CAROTID DOPP COMPLETE REASON FOR EXAM: right bruit Indication: ITS.REASON: right bruit PROCEDURE: US CAROTID DOPP COMPLETE: TECHNIQUE: Grayscale, color and duplex Doppler imaging was performed of the carotid systems bilaterally. Velocities in cm/sec - validated velocity measurements with angiographic measurements, velocity criteria are extrapolated from diameter data as defined by the Society of Radiologists in Ultrasound Consensus Conference Radiology 2003; 229;340-346. RIGHT: PSV ICA 105 EDV ICA 24 PSV CCA 110 EDV CCA 14 SVR 1.0 PSV ECA 141 ICA Diameter reduction <20% (0.8-1.0)% LEFT: PSV ICA 71 EDV ICA 17 PSV CCA 112 EDV CCA 19 SVR 0.80 PSV ECA 113 ICA Diameter reduction 0% (<0.8)% The right vertebral artery is patent with cephalic flow. The left vertebral artery is patent with cephalic flow. Calcified plaque in the right carotid bulb and proximal ICA without velocity elevation. Mild plaque also seen in the left carotid bulb with moderate noncalcified plaque in the proximal ICA. No velocity elevation. IMPRESSION: No hemodynamically significant carotid stenosis. 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 He has fallen about every month due to his unsteady gait and foot drop from the neuropathy. In fact he fell 04/2016 and tore his rotator cuff and had surgery by Dr. Leon. His shoulder still is painful and had PT and an project management it specialist work with him. He is scheduled for an MRI and revisit possible shoulder surgery in the near future. His legs are swollen L>R and his feet are cool and 1 1/[address] Parra who performed an ultra sound and informed him he has good circulation in his lower extremities. This evening after Bible study class he was walking down the stairs when he developed chest pain. He thought it was gas and after he drove home took 3 Tums for no relief. While at home the chest pain became worse radiating into his upper back and up the back of his neck giving him a bad headache. After 45 minutes he could not tolerate the pain and called EMS. In ER ECG: SR, possible LAE. no acute ischemia. . Initial trop was negative. CXR : heart size normal, lungs clear. all othre labs unremarkable. In ER he received. Zatac, Reglan and Dilaudid. for no relief. Then he was given Ntg sl and with each Ntg his chest pain lessened down to 0/10. Currently denies chest pain except with deep breaths. Dr. De Luna was notified and admitted pt as OBS. Objective Vital Signs Vital signs Vital Signs 10/02/16 10/02/16 10/02/16 07:44 07:49 15:38 Temp 98.2 Pulse 84 84 94 Resp 16 16 18 B/P 110/68 152/79 Pulse Ox 97 95 O2 Delivery Room Air Room Air Telemetry Rhythm: Sinus Rhythm Height (Feet): 5 Height (Inches): 9.00 Weight (Kilograms): 92.700 General Alert, Orientated x 3, Cooperative ENMT (Brief) mucosa moist Neck (Brief) carotid bruits (right), NOT FOUND: JVD Respiratory (Brief) clear all wells, equal bilaterally, NOT FOUND: rales, wheezes Cardiovascular (Brief) murmur (sytolic and diastolic), regular rate, regular rhythm, NOT FOUND: pedal edema Abdomen (Brief) BS normo active x4, soft, NOT FOUND: tender Integumentary (Brief) dry, pink, warm Psychiatric (Brief) alert, attentive, oriented Laboratory Laboratory Laboratory Tests 10/01/16 22:04 Laboratory Tests 10/01/16 22:04 Medications Current Medications Hydromorphone HCl (Dilaudid) 1 mg O ONCE IV Last administered on 10/01/16 22: 42; Start 10/01/16 at 22:15; Stop 10/01/16 at 22:16; Status DC Aspirin 324 mg 324 mg O ONCE PO ; Start 10/01/16 at 22:15; Stop 10/01/16 at 22: 16; Status DC Sodium Chloride (Normal Saline IV) 1,000 ml @ 0 mls/hr Q0M ONCE IV Last administered on 10/01/16 22:33; Start 10/01/16 at 22:15; Stop 10/01/16 at 22:16 ; Status DC Metoclopramide HCl (REGLAN Inj) 10 mg O ONCE IV Last administered on 22:34; Start 10/01/16 at 22:15; Stop 10/01/16 at 22:16; Status DC Ranitidine HCl (Zantac) 150 mg O ONCE PO Last administered on 10/01/16 22:36 ; Start 10/01/16 at 22:15; Stop 10/01/16 at 22:16; Status DC Nitroglycerin (Nitro-Bid) 1 inch O ONCE TOP Last administered on 10/02/16 00: 14; Start 10/02/16 at 00:15; Stop 10/02/16 at 00:16; Status DC Nitroglycerin (Nitrostat) 0.4 mg Q5MIN PRN SL CHEST PAIN; Start 10/02/16 at 01: 00 Morphine Sulfate (Morphine) 2 mg Q1H PRN IV PAIN; Start 10/02/16 at 01:00 Acetaminophen (Tylenol Regular Strength) 1-2 TABS Q5H PRN PO DISCOMFORT; Start 10/02/16 at 02:00 Ketorolac Tromethamine (Toradol) 30 mg O ONCE IV Last administered on 02:13; Start 10/02/16 at 02:00; Stop 10/02/16 at 06:36; Status DC Ondansetron HCl (Zofran) 4 mg Q6H PRN IV NAUSEA &/OR VOMITING; Start 10/02/16 at 02:00 Tamsulosin HCl (FLOMAX 0.4 mg) 0.4 mg BID PO Last administered on 10/02/16 08: 48; Start 10/02/16 at 09:00 Acetaminophen/ Hydrocodone Bitart ([place] 5/325) 1 tab Q6H PRN PO PRN ORDERS Last administered on 10/02/16 15:42; Start 10/02/16 at 03:45 Ibuprofen (Motrin) 200 mg Q6H PRN PO ; Start 10/02/16 at 03:45 Multivitamins/ Minerals (Vision) 1 tab DAILY PO Last administered on 10/02/16 08:48; Start 10/02/16 at 09:00 Triamterene/HCTZ (Maxzide-25) 1 tab DAILY PO Last administered on 10/02/16 08: 48; Start 10/02/16 at 09:00 Omeprazole (Prilosec) 20 mg ACBID PO Last administered on 10/02/16 17:20; Start 10/02/16 at 07:30 Aspirin (ASA) 81 mg DAILY PO Last administered on 10/02/16 17:20; Start at 16:00 Enoxaparin Sodium (Lovenox) 40 mg DAILY SQ Last administered on 10/02/16 17:20 ; Start 10/02/16 at 16:00 Hospital Course Luis was admitted and serial troponin levels were trended. An echocardiogram was obtained which showed some calcification so a chest CT was obtained which showed some Aortic ectasia but no acute cardiopulmonary disease. It did show incidentally small stones in the gallbladder. Carotid doppler was also obtained due to right bruit but did not show any significant stenosis of the ICAs. Problems: (1) Substernal chest pain Status: Acute (2) Neuropathy associated with cancer Status: Chronic (3) GERD (gastroesophageal reflux disease) Status: Chronic (4) Left shoulder pain Status: Chronic (5) HTN (hypertension) (6) Urinary retention Status: Chronic GI Prophylaxis: Other Code Status Full Code Home Meds Active Scripts Hydrocodone/Apap ([place] 5-325 Tablet) 1 Each Tablet, 1-2 TAB PO Q6H Y for PRN ORDERS, #20 TAB 0 Refills Prov:JOVANNA ELIZABETH MD 05/20/15 Reported Medications Meloxicam (Meloxicam) 15 Mg Tablet, 15 MG PO DAILY, TAB 10/02/16 Mirabegron (Myrbetriq) 50 Mg Tab.er.24h, 50 MG PO DAILY, TAB 10/02/16 Oxycodone HCl (Oxycodone HCl) 20 Mg Tablet, 1 TAB PO HS 10/02/16 Oxycodone HCl (Oxycontin) 10 Mg Tab.er.12h, 10 MG PO DAILY, TAB 10/01/16 Multivitamin with Minerals (Multiple Vitamin) 1 Each Tablet, 1 TAB PO DAILY 05/20/15 Calcium Carbonate/Vitamin D3 (Calcium 600 + Vit D 200 Tablet) 1 Each Tablet, 1 TAB PO DAILY 05/20/15 Tamsulosin HCl (Tamsulosin HCl) 0.4 Mg Cap.er.24h, 1 TAB PO BID 05/20/15 Triamterene/Hydrochlorothiazid (Triamterene-Hctz 37.5-25 mg Tb) 1 Each Tablet, 1 TAB PO DAILY 05/20/15 Discontinued Reported Medications Ibuprofen (Ibuprofen) 200 Mg Capsule, 1 CAP PO Q6H Y, CAP 05/20/15 Sildenafil Citrate (Viagra) 100 Mg Tablet, 1 TAB PO PRN 05/20/15 Testosterone Cypionate (Testosterone Cypionate) 200 Mg/1 Ml Vial, 2 ML IM Q2WK 05/20/15 Omeprazole Magnesium (Prilosec Otc) 20 Mg Tablet.dr, 1 TAB PO BID, TAB 05/20/15 Benzonatate (Benzonatate) 200 Mg Capsule, 1 TAB PO TID Y for cough 05/20/15 Promethazine HCl/Codeine (Promethazine-Codeine Syrup) 118 Ml Syrup, 5 ML PO Q6H Y for cough 05/20/15 Discontinued Scripts Amoxicillin/Potassium Clav (Amox Tr-K Clv 500-125 mg Tab) 1 Each Tablet, 1 TAB PO TID, #21 TAB 0 Refills TAKE WITH MEALS Prov:JOVANNA ELIZABETH MD 05/20/15 Discharge Disposition Discharged to home in good and stable condition in the care of himself, instructed to follow up with Dr. De Luna for outpatient stress test. GATITO DE LUNA MD 10/05/16 1555: Hospital Course Home Meds Active Scripts Hydrocodone/Apap ([place] 5-325 Tablet) 1 Each Tablet, 1-2 TAB PO Q6H Y for PRN ORDERS, #20 TAB 0 Refills Prov:JOVANNA ELIZABETH MD 05/20/15 Reported Medications Meloxicam (Meloxicam) 15 Mg Tablet, 15 MG PO DAILY, TAB 10/02/16 Mirabegron (Myrbetriq) 50 Mg Tab.er.24h, 50 MG PO DAILY, TAB 10/02/16 Oxycodone HCl (Oxycodone HCl) 20 Mg Tablet, 1 TAB PO HS 10/02/16 Oxycodone HCl (Oxycontin) 10 Mg Tab.er.12h, 10 MG PO DAILY, TAB 10/01/16 Multivitamin with Minerals (Multiple Vitamin) 1 Each Tablet, 1 TAB PO DAILY 05/20/15 Calcium Carbonate/Vitamin D3 (Calcium 600 + Vit D 200 Tablet) 1 Each Tablet, 1 TAB PO DAILY 05/20/15 Tamsulosin HCl (Tamsulosin HCl) 0.4 Mg Cap.er.24h, 1 TAB PO BID 05/20/15 Triamterene/Hydrochlorothiazid (Triamterene-Hctz 37.5-25 mg Tb) 1 Each Tablet, 1 TAB PO DAILY 05/20/15 Discontinued Reported Medications Ibuprofen (Ibuprofen) 200 Mg Capsule, 1 CAP PO Q6H Y, CAP 05/20/15 Sildenafil Citrate (Viagra) 100 Mg Tablet, 1 TAB PO PRN 05/20/15 Testosterone Cypionate (Testosterone Cypionate) 200 Mg/1 Ml Vial, 2 ML IM Q2WK 05/20/15 Omeprazole Magnesium (Prilosec Otc) 20 Mg Tablet.dr, 1 TAB PO BID, TAB 05/20/15 Benzonatate (Benzonatate) 200 Mg Capsule, 1 TAB PO TID Y for cough 05/20/15 Promethazine HCl/Codeine (Promethazine-Codeine Syrup) 118 Ml Syrup, 5 ML PO Q6H Y for cough 05/20/15 Discontinued Scripts Amoxicillin/Potassium Clav (Amox Tr-K Clv 500-125 mg Tab) 1 Each Tablet, 1 TAB PO TID, #21 TAB 0 Refills TAKE WITH MEALS Prov:JOVANNA ELIZABETH MD 05/20/15 Discharge Disposition After examining the patient I agree with the above assessment. I am involved in the formulation of the patient's plan of care. LEV PAPPAS APRN Oct 02, 2016 18:05 GATITO DE LUNA MD Oct 05, 2016 15:55
--- NOTE | 2016-10-02 19:16 | NUR ---
DISMISSAL PT DISMISSED TO HOME VIA WHEELCHAIR TO VEHICLE AT 1900. PT BELONGINGS PACKED, GO HOME INSTRUCTIONS GIVEN, PT DRESSED AND IVL PULLED.
--- NOTE | 2016-10-03 11:24 | ECHOF ---
DATE OF PROCEDURE October 02, 2016 PROCEDURE Echocardiogram. DESCRIPTION OF PROCEDURE This is a two-dimensional echo with spectral Doppler, color-flow and M-mode. It was obtained in a patient with chest pain. Left atrial dimension is normal. Left ventricular end-diastolic dimension is normal. Left ventricular wall thickness is normal. LV systolic function is normal with ejection fraction of about 70-75%. Right atrium is normal. Right ventricle is normal. Aortic root dimension is normal. Mitral annulus is calcified. Mitral valve leaflet leaflets are normal with trace of mitral regurgitation. Aortic valve is a trileaflet structure with fibrocalcific changes with no stenosis. Trace of mild aortic insufficiency is present. Tricuspid valve shows trace of tricuspid regurgitation with normal estimated pulmonary artery systolic pressure of 24. Pulmonary valve shows no pulmonary insufficiency. There is no pericardial effusion. IMPRESSION 1. Normal LV systolic function with ejection fraction of 70-75%. 2. Mitral annulus calcification with trace of mitral regurgitation. 3. Aortic sclerosis with mild aortic insufficiency. 4. Mild tricuspid regurgitation with normal estimated pulmonary artery systolic pressure of 24. MTDD
== END 2016-10-02 19:05 | disposition home or self-care (01) ==
LOC: ED 21:44 → EDHOLD 10-02 00:49 → INTOOBSV 10-02 00:49 → OBSVTOIN 10-02 00:49 → MED 10-02 01:25
PROVIDERS: ADMIT Internal Medicine Cardiovascular Disease; ATTEND Internal Medicine Cardiovascular Disease
DX: R07.2 Precordial pain (principal); I10 Essential (primary) hypertension; K21.9 Gastro-esophageal reflux disease without esophagitis; G62.0 Drug-induced polyneuropathy; T45.1X5S Adverse effect of antineoplastic and immunosuppressive drugs, sequela; Z85.72 Personal history of non-Hodgkin lymphomas; R26.81 Unsteadiness on feet; M21.372 Foot drop, left foot; M21.371 Foot drop, right foot; R29.6 Repeated falls; M25.512 Pain in left shoulder; R33.8 Other retention of urine; Z79.1 Long term (current) use of non-steroidal anti-inflammatories (NSAID); Z79.899 Other long term (current) drug therapy
CPT/HCPCS: 36415; 71010; 71250; 80053; 83690; 84484; 85025; 93005; 93306; 93880; 96361; 96372; 96374; 96375; 99284; A9270; G0378; J1170; J1650; J1885; J2765; J7030; 99218